=== PATIENT | male | born 1955 | race Two or more races ===

== ENCOUNTER 2025-02-12 12:12 | Emergency (ER) | payer MEDICAID, SELFPAY ==
[2025-02-12 12:13] VITALS: BMI 34.0
--- NOTE | 2025-02-12 12:22 | EKG_ITS ---
[facility] Test Date: 2025-02-12 Pat Name: KAITY REYNOSO Department: Room: - Gender: Male Invoice Classification Clerk: : 1955 Requested By: Wade Ray Order Number: [id number] Reading MD: Wade Ray Measurements Intervals [place] Rate: 63 P: 63 NC: 192 QRS: 58 QRSD: 86 T: 63 QT: 358 QTc: 366 Interpretive Statements SINUS RHYTHM Compared to ECG 02/08/2018 12:49:54 Sinus bradycardia no longer present /store/S0/[id number]
--- NOTE | 2025-02-12 12:23 | XR_ITS ---
Examination: CT brain head without contrast. 2-D sagittal coronal reconstructions Date and time of exam:10/15/2024 1239 hours INDICATIONS: Syncopal episodes today CTDI: vol (mGy):54.1 DLP: (mGycm):1021 Technique: Multiple CT axial sections of the brain have been obtained, 5 mm slice thickness. Contrast has not been administered. 2-D sagittal, coronal reconstructions have been obtained Low dose protocols were performed. One or more of the following dose reduction techniques were used; automated exposure control, adjustment of the mA and/or KV according to patient size, use of iterative reconstruction technique. Findings: No significant ventricular enlargement. Intra-axial or extra-axial hemorrhage density is not seen. No mass effect or midline shift Basal cisterns are not remarkable. Fourth ventricle is midline. Cranial vault intact. Impression: Negative for acute hemorrhage, mass effect or midline shift
--- NOTE | 2025-02-12 12:25 | PD.EDSYNC ---
ED Syncope RME/HPI General Chief Complaint: Syncope / Near Syncope Stated Complaint: OLD SYNCOPE EPISODE Time Seen by Provider: 02/12/25 12:14 Arrival date/time: 02/12/25 12:12 Limitations: no limitations RME / HPI RME / HPI narrative: 69 year old male with a history of hypertension presents to the ED for evaluation of a syncopal episode that occurred three days ago. The patient reports that he was at home with family on Wednesday and had drank four beers. While playing with his grandchildren, he developed a coughing episode, followed by a brief loss of consciousness lasting a few seconds, during which he fell forward onto the floor. He notes a similar event approximately six months ago, where he momentary lost consciousness, though he did not seek medical attention at that time. Over the past two days, he has felt at his usual state of health and denies dizziness, weakness, or any other associated symptoms or complaints. Related Data Home Medications ?Medication ?Instructions ?Recorded ?Confirmed lisinopril 20 mg tablet 20 mg PO QDAY 02/08/18 02/09/18 Previous Rx's ?Medication ?Instructions ?Recorded docusate sodium 100 mg capsule 100 mg PO BID #60 caps 02/09/18 (Colace) hydrocodone 7.5 mg-acetaminophen 1 tab PO Q6HR PRN pain #40 tabs 02/09/18 325 mg tablet ([place]) Allergies Allergy/AdvReac Type Severity Reaction Status Date / Time No Known Allergies Allergy Verified 02/09/18 11:46 Review of Systems Review of Systems Systems Reviewed: All systems reviewed, normal except as documented Past Medical History Past Medical History CARDIAC: Positive Cardiac Disorders, Hypercholesterolemia (TAKES MED) and Hypertension (TAKES MED) GASTROINTESTINAL: Positive Gastrointestinal Disorders and Hemorrhoids OTHER HISTORY: Positive Chicken Pox Social History SMOKING STATUS: Current some day smoker ED Exam General Limitations: Present no limitations General appearance: Present alert and in no apparent distress Head Head exam: Present atraumatic, normocephalic and normal inspection Eye Eye exam: Present normal appearance, PERRL and EOMI ENT ENT exam: Present normal exam, normal oropharynx and mucous membranes moist Neck Neck exam: Present normal inspection, full ROM and trachea midline Chest Chest inspection: Present normal inspection and symmetric chest wall rise Respiratory Respiratory exam: Present normal lung sounds bilaterally Cardiovascular Cardiovascular exam: Present regular rate, normal rhythm and normal heart sounds Abdominal Exam Abdominal exam: Present soft and normal bowel sounds Extremities Exam Extremities exam: Present normal inspection and full ROM Back Exam Back exam: Present normal inspection and full ROM Neurological Exam Neurological exam: Present alert, oriented X3 and CN II-XII intact Psychiatric Psychiatric exam: Present normal affect and normal mood Skin Skin exam: Present warm, dry, intact and normal color Course Quality Measures none Orders Category Date Time Status Web Content Manager STAT Care 02/12/25 12:22 Completed EKG (ED ONLY) *Do not use* NOW Care 02/12/25 12:22 Completed Insert IV STAT Care 02/12/25 12:[address] head/brain wo con Stat Exams 02/12/25 12:23 Completed EKG (ED Only) Stat Exams 02/12/25 12:22 Draft CBC Stat Lab 02/12/25 11:41 Completed Comprehensive Metabolic Panel Stat Lab 02/12/25 11:41 Completed Prothrombin Time with INR Stat Lab 02/12/25 11:41 Completed Troponin I Stat Lab 02/12/25 11:41 Completed Urinalysis Stat Lab 02/12/25 15:04 Completed Sodium Chloride 0.9% 500 ml [Ns] 500 ml Med 02/12/25 12:22 Discontinued IV 999 mls/hr Vital Signs Vital signs: Vital Signs Temperature 97.7 F 02/12/25 12:26 Pulse Rate 74 02/12/25 12:26 Respiratory Rate 18 02/12/25 12:26 Blood Pressure 160/74 H 02/12/25 12:26 Pulse Oximetry (%) 97 02/12/25 12:26 Oxygen Delivery Method Room Air 02/12/25 12:26 Pulse ox is 97% on room air which is adequate. Syncope MDM Narrative MDM Narrative:: Lorrie Villafana am scribing for and in the presence of Dr. Edwards. Patient remains clinically stable throughout the emergency department visit. We reviewed all the results, analysis, and treatment plans. Patient is amenable to discharge. Strict return precautions were outlined. Patient was discharged in stable condition. Patient data External records reviewed:: [facility] previous records (I reviewed H&P on 02/11/2018 ) Clinical information provided by:: patient Social determinants that could affect healthcare access:: alcohol use (States he drinks socially ) Patient has the following chronic illnesses:: Hypertension How is presenting disease/condition affected by chronic disease/condition?: uneffected by Evaluation data The following diagnostics were reviewed and interpreted by me:: lab results, radiology exam(s) and EKG tracing(s) (EKG 02/12/2025 @ 12:52. Sinus rhythm, rate 63, no STEMI, PA 192ms, QRS 86ms, QT/QTc 358/364ms ) Lab and/or radiology exams considered but not ordered:: Magnesium and Phosphate Interpretation Summary: Ordering Physician: Wade Edwards MD Date of Service: 02/12/25 Procedure(s): CT head/brain wo con Accession Number(s): [id number] cc: Wade Edwards MD; Juan Luis Nicole MD~ Examination: CT brain head without contrast. 2-D sagittal coronal reconstructions Date and time of exam:10/15/2024 1239 hours INDICATIONS: Syncopal episodes today CTDI: vol (mGy):54.1 DLP: (mGycm):1021 Technique: Multiple CT axial sections of the brain have been obtained, 5 mm slice thickness. Contrast has not been administered. 2-D sagittal, coronal reconstructions have been obtained Low dose protocols were performed. One or more of the following dose reduction techniques were used; automated exposure control, adjustment of the mA and/or KV according to patient size, use of iterative reconstruction technique. Findings: No significant ventricular enlargement. Intra-axial or extra-axial hemorrhage density is not seen. No mass effect or midline shift Basal cisterns are not remarkable. Fourth ventricle is midline. Cranial vault intact. Impression: Negative for acute hemorrhage, mass effect or midline shift Dictated By: Juan Luis Nicole MD Signed By: <Electronically signed by Juan Luis Nicole MD in [place]> 02/12/25 1237 Medications / Prescriptions Medications or Prescriptions considered but not ordered:: none Medication administrations:: Medication Administration History Discontinued Medications Sodium Chloride (Ns) 500 mls @ 999 mls/hr IV .Q31M ONE Stop: 02/12/25 12:52 Last Infusion: 02/12/25 14:59 Dose: Infused Documented By: Admin: 02/12/25 14:07 Dose: 999 mls/hr Documented By: BEBETO See above Consultations Consultation(s) initiated? (list below): No Diagnosis Syncope Differential Diagnosis: syncope due to orthostatic hypotension, dehydration and other (syncope, near syncope ) Most likely diagnosis given after review of the tests above:: Near syncope Admission Indicated Admission indicated?: not indicated Admission Request Was there a request for admission?: No Disposition Plan Disposition Plan: Discharge Discharge Attestation Discharge Attestation: The patient and all family members were given an opportunity to ask questions and understood the discharge instructions. Discharge instructions specifically effects, indications for sooner follow up or return to the emergency department, and the expected course of current diagnosis. Patient condition: Stable Discharge Plan Plan Patient Disposition: HOME (Self Care) Prescriptions/Referrals Prescriptions/Med Rec: No Action lisinopril 20 mg Tablet 20 mg PO QDAY hydrocodone-acetaminophen [[place]] 7.5-325 mg tablet 1 tab PO Q6HR MDD 4 PRN (Reason: pain) Qty: 40 0RF docusate sodium [Colace] 100 mg capsule 100 mg PO BID Qty: 60 0RF Referrals: Melo Mahoney MD [Primary Care Provider] - In 1 week Problem List Clinical Impression: Near syncope Patient/Caregiver Discharge Instructions Education Materials: ED Fainting, Uncertain Cause Additional Instructions: Follow-up with your primary care doctor in 1-2 days to consider holtor monitor, carotid ultrasound per your MD. You can return to the emergency department sooner if symptoms worsen or if you notice any new, concerning issues. Print Language: Tamazight Stand Alone Forms: Jodi Award Info., Patient Portal Info Letter
[2025-02-12 12:26] VITALS: BP 160/74; PULSE 74; RESP 18; TEMP 36.5; O2SAT 97
[2025-02-12 12:57] LABS: Basophils % (Auto) 0 % (0-2.5); Eosinophils # (Auto) 0.3 Thou/mm3 (0.0-0.5); Eosinophils % (Auto) 3 % (0-10); Hematocrit 42.8 % (41.0-53.0); Hemoglobin 15.6 g/dL (13.5-16.0); Immature Granulocytes % (Auto) 1 % (0-0); Immature Granulocytes Auto 0.04 Thou/mm3 (0.00-0.00); Lymphocytes # (Auto) 1.5 Thou/mm3 (1.0-4.8); Lymphocytes % (Auto) 19 % (10-50); Mean Corpuscular HGB Conc 36.4 g/dl (31.0-37.0); Mean Corpuscular Hemoglobin 29.7 pg (25.0-35.0); Mean Corpuscular Volume 81 fL (80-100); Monocytes # (Auto) 0.6 Thou/mm3 (0.0-0.8); Monocytes % (Auto) 7 % (0-12); Neutrophils # (Auto) 5.6 Thou/mm3 (1.8-7.7); Neutrophils % (Auto) 70 % (37-80); Nucleated Red Blood Cell % 0 /100 WBC (0); Platelet Count 265 Thou/mm3 (140-440); RDW Standard Deviation 40.4 fL (35.1-43.9); Red Blood Count 5.26 Miln/mm3 (4.50-5.90); White Blood Count 7.9 Thou/mm3 (3.8-10.6)
[2025-02-12 13:09] LABS: INR 0.9 (0.9-1.3); Prothrombin Time 10.4 Seconds (9.0-12.2)
[2025-02-12 13:20] LABS: Alanine Aminotransferase 18 U/L (10-49); Albumin, Serum 4.2 gm/dL (3.4-4.8); Albumin/Globulin Ratio 1.6 (1.2-2.2); Alkaline Phosphatase 97 U/L (46-116); Anion Gap 8 (7-16); BUN/Creatinine Ratio 11 Ratio (12-20); Bilirubin,Total 0.4 mg/dL (0.3-1.2); Blood Urea Nitrogen 9 mg/dL (9-23); Calcium 8.8 mg/dL (8.3-10.6); Calcium (Corrected) 8.8 mg/dL (8.5-10.1); Carbon Dioxide 29.6 mMol/L (20.0-31.0); Chloride 102 mMol/L (98-107); Creatinine (Component) 0.8 mg/dL (0.6-1.3); Globulin 2.6 gm/dL (2.3-3.5); Glucose 142 mg/dL (74-106); Osmolality,Calculated 280 (275-295); Potassium 3.4 mMol/L (3.4-5.1); Sodium 140 mMol/L (136-145); Total Protein 6.8 gm/dL (5.7-8.2); Troponin I < 0.002 ng/mL (0.0-0.045); eGFR > 60 See Note
[2025-02-12] MEDS: SODIUM CHLORIDE 0.9% 500 ML 500 ML 999 ML IV (14:07)
[2025-02-12 14:08] VITALS: PULSE 59
[2025-02-12 15:15] LABS: Collection Type, Urine Clean Catch
[2025-02-12 15:48] LABS: Bilirubin,Urine Negative (Negative); Blood,Urine Negative (Negative); Clarity,Urine Clear (Clear/Hazy); Color,Urine Colorless (Lt Yel-Yel); Glucose, Urine Negative (Negative); Ketones,Urine Negative (Negative); Leukocyte Esterase,Urine Negative (Negative); Nitrite,Urine Negative (Negative); Protein,Urine Negative (Neg - Trace); RBC,Urine 1 /hpf (0-3); Specific Gravity,Urine 1.013 (1.001-1.035); Squamous Epithelial Cell,Urine 1 /hpf (0-5); Urobilinogen,Urine Negative mg/dL (0.0-1.0); WBC,Urine 1 /hpf (0-5)
[2025-02-12 16:03] VITALS: BP 160/86; PULSE 65; RESP 18; O2SAT 95
== END 2025-02-12 16:03 | disposition home or self-care (01) ==
PROVIDERS: Emergency Provider Family Medicine; PCP Family Medicine
DX: R55 Syncope and collapse (principal); I10 Essential (primary) hypertension; F17.200 Nicotine dependence, unspecified, uncomplicated; E78.00 Pure hypercholesterolemia, unspecified; W18.30XA Fall on same level, unspecified, initial encounter
CPT/HCPCS: 36415; 70450; 80053; 81001; 84484; 85025; 85610; 93005; 96360; 99284; J7040